=== PATIENT | male | born 1965 | race Caucasian/White ===

== ENCOUNTER 2022-01-08 18:46 | Emergency (ER) | payer OTHER, SELFPAY ==
[2022-01-08] MEDS ORDERED: Boostrix 0.5 ML (Tdap) VIAL ONE (19:12)
[2022-01-08] MEDS ORDERED: Bacitracin 1 PK ONE (19:12)
[2022-01-08] MEDS ORDERED: Lidocaine 1% w/Epinephrine 1:100K 20 ML VIAL ONE (19:12)
[2022-01-08] MEDS ORDERED: CEFAZOLIN 1 GM VIAL ONE (19:41)
[2022-01-08] MEDS ORDERED: Lidocaine 1% PF 5 ML VIAL ONE (20:27)
== END 2022-01-08 21:20 | disposition home or self-care (01) ==
LOC: BURERS 18:46
DX: S61.211A Laceration without foreign body of left index finger without damage to nail, initial encounter (principal); Z23 Encounter for immunization; W26.8XXA Contact with other sharp object(s), not elsewhere classified, initial encounter
CPT/HCPCS: 12002; 90471; 90715; 96372; J0690